=== PATIENT | female | born 1950 | race Caucasian/White ===

== ENCOUNTER → 2016-12-31 | Outpatient (CLI) | payer MEDICARE, BC ==
[~2016-12-31] MED LIST: ACIPHEX20 MG PO; ADVAIR 250-501 EAC1 INH; ALEVE220 M1 PO; ASTELIN; ASTELIN137 MCG INH; AZITHROMYCIN250 MG PO; BENZONATATE200 M1 PO; CALCIUM CITRAT1 EACH PO; CLARITIN10 M2 PO; DELTASONE20 MG; DIPHENOXYLATE PO; DULERA 200 MCG/13 GM INH; HYDROCODONE/APA1 T16 PO; HYZAAR 100-12.51 TAB PO; LEVOCETIRIZINE D5 MG PO; LIBRIUM PO; LOMOTIL WHITE2.5 M1 PO; LOSARTAN-HCTZ1 EAC2 PO; MONTELUKAST SOD10 MG PO; NASONEX17 GM; OMEPRAZOLE40 M1 PO; PHENERGAN PO; PHENERGAN25 MG PO; PREDNISONE10 M1; PREMARIN PO; PROAIR HFA8.5 GM INH; PROTONIX PO; REGLAN PO; SENNA LAXATIVE25 MG; TRAMADOL HCL50 M1 PO; VENTOLIN; VITAMIN C500 M1 PO; XOPENEX1.25 MG/3 INH; ZYRTEC PO; [UNRECOGNIZED DRUG - OTHER] PO
--- NOTE | ~2016-12-31 | MR113 ---
[facility] A Service of [facility] RADIOLOGY TEXT RESULTS PATIENT: KURT CENTENO LOCATION: [facility] : 50 UNIT #: [id number] AGE: [address]: Janelle Choudhary MD SEX: F ORDER DR: [id number] [place] [id number] P MR#: [id number] Acc #: [id number] NAME: KURT CENTENO : 1950 SEX: F STUDY DATE/TIME: 12/31/2016 11:38 UNIT: [facility] ROOM: STUDY DESCRIPTION: MR Lumbar Wo Contrast Attending Physician: Alicia Choudhary M.D. Referring Physician: Alicia Choudhary M.D. Ordering Physician: Alicia Choudhary M.D. Primary Care Physician: Saroj Alexis M.D. MRI CENTER REPORT This report is preliminary unless electronic signature is present. EXAM Lumbar spine MRI no contrast 12/31/2016 TECHNIQUE Routine unenhanced lumbar spine MRI. HISTORY Low back pain and right leg pain and right foot pain for 1 year. FINDINGS There is a grade 2 anterolisthesis at L5-S1 with bilateral pars defects. Alignment is otherwise normal and bone marrow signal is within normal limits. The paraspinous soft tissues are normal. At L1-L2, L2-L3, L3-L4 and L4-L5, there is no canal or foraminal stenosis. At L5-S1, there is anterolisthesis, pars defects, pseudo disc bulge, and no canal stenosis but at least moderate left and [id number]-rb-[id number] right foraminal stenosis. IMPRESSION Grade 2 L5-S1 anterolisthesis with bilateral pars defects and lrng-jtmylxc-rstq-right right foraminal stenosis. Otherwise, negative normal lumbar spine MRI without contrast. Dictated by... Jose L Puri M.D. [facility] A Service of [facility] RADIOLOGY TEXT RESULTS PATIENT: KURT CENTENO LOCATION: [facility] : 50 UNIT #: [id number] AGE: [address]: Janelle Choudhary MD SEX: F ORDER DR: THIS IS AN ELECTRONICALLY VERIFIED REPORT Jose L Puri M.D. at 01/02/2017 5:06 PM TEV/pcl TD: 12/31/2016 17:52 JOB #: [id number] MRI CENTER REPORT Page 1 of 1
== END | disposition home or self-care (01) ==
LOC: SMRI 07:33
DX: M54.16 Radiculopathy, lumbar region (principal); M43.17 Spondylolisthesis, lumbosacral region
CPT/HCPCS: 72148

== ENCOUNTER → 2017-01-03 | Outpatient (CLI) | payer MEDICARE, BC ==
--- NOTE | ~2017-01-03 | CR63 ---
[facility] A Service of [facility] RADIOLOGY TEXT RESULTS PATIENT: KURT CENTENO LOCATION: [facility] : 50 UNIT #: [id number] AGE: [address]: LUCILA GREEN APRN SEX: F ORDER DR: [id number] [facility] [address] [place], [place] [address] [id number] O MR#: [id number] Acc #: [id number] NAME: KURT CENTENO : 1950 SEX: F STUDY DATE/TIME: 01/03/2017 15:00 UNIT: [facility] ROOM: STUDY DESCRIPTION: CR Chest 2 View Attending Physician: Lucila Green Np Referring Physician: Lucila Green Np Ordering Physician: Lucila Green Np Primary Care Physician: Saroj Alexis M.D. MEDICAL IMAGING REPORT This report is preliminary unless electronic signature is present EXAM PA and lateral chest 01/03 COMPARISON 07/23/2016 HISTORY Cough, shortness of breath and congestion for 3 days FINDINGS PA and lateral views are obtained. The cardiovascular configuration of the chest is normal and the lungs are clear. There is atherosclerotic disease in the aorta. CONCLUSION 1. No active disease Dictated by... Esau Hope M.D. THIS IS AN ELECTRONICALLY VERIFIED REPORT Esau Hope M.D. at 01/03/2017 10:17 PM CAESAR/eliot TD: 01/03/2017 16:20 JOB #: [id number] MEDICAL IMAGING REPORT Page 1 of 1 COPY
== END | disposition home or self-care (01) ==
LOC: CRAD 14:42
DX: R05 Cough (principal)
CPT/HCPCS: 71020

== ENCOUNTER → 2017-02-12 | Day surgery (SDC) | payer MEDICARE, BC ==
--- NOTE | ~2017-02-12 | OR ---
Unit #: [id number] #: [id number] Patient: KURT CENTENO [id number] [address] [place], [place] [address] [id number] O MR#: [id number] NAME: KURT CENTENO ROOM: Date of Procedure: 02/12/2017 Admission Date: 02/12/2017 Surgeon: Dominik Willard M.D. : 1950 Attending Physician: Dominik Willard M.D. Primary Care Physician: Saroj Alexis M.D. OPERATIVE REPORT PREOPERATIVE DIAGNOSES Spondylolisthesis and radiculopathy. POSTOPERATIVE DIAGNOSES Spondylolisthesis and radiculopathy. PROCEDURE PERFORMED Lumbar epidural steroid injection with intravenous sedation under fluoroscopic guidance for needle localization. HISTORY The patient is a 66-year-old female who complained of right lower extremity pain down to her lateral foot. Workup demonstrated a grade 2 L5-S1 spondylolisthesis and the symptom complex consistent with S1 radiculopathy. She failed to settle with conservative treatment. Based on history, pathology, and symptomatology, plan is for trial of epidural steroids. Risks and benefits of all which have been reviewed. DESCRIPTION OF PROCEDURE The patient was placed in the seated position. Standard monitors were applied. A sterile prep and drape then of the lumbar area was performed. Then, 2 mg of Versed was given for sedation and anxiolysis, which were adequate. Vital signs did remain stable. The skin then at the L5 level was localized with 1% lidocaine. An 18-gauge Hustead needle was then advanced via loss of resistance technique and fluoroscopic guidance in toward the epidural space. After confirming proper positioning with fluoroscopy and radiographic contrast, 80 mg of Depo-Medrol and 4 mL of 0.125% bupivacaine were deposited. The patient tolerated the procedure otherwise well and was discharged to the recovery room in stable condition. Dictated by... Dominik Willard M.D. LHP/modl TD: 02/12/2017 11:04 JOB #: [id number] CC: Alicia Choudhary M.D. Unit #: [id number] #: [id number] Patient: KURT CENTENO OPERATIVE REPORT Page 1 of 1 X Dominik Willard MD X PROCEDURE OPERATIVE NOTE
== END | disposition home or self-care (01) ==
LOC: CCSC 07:38
DX: M43.17 Spondylolisthesis, lumbosacral region (principal); M54.18 Radiculopathy, sacral and sacrococcygeal region; K21.9 Gastro-esophageal reflux disease without esophagitis
CPT/HCPCS: J1040; J2250

== ENCOUNTER → 2017-02-19 | Day surgery (SDC) | payer MEDICARE, BC ==
--- NOTE | ~2017-02-19 | OR ---
Unit #: [id number] #: [id number] Patient: KURT CENTENO [id number] [address] [place], [place] [address] [id number] O MR#: [id number] NAME: KURT CENTENO ROOM: Date of Procedure: 02/19/2017 Admission Date: 02/19/2017 Surgeon: Dominik Willard M.D. : 1950 Attending Physician: Dominik Willard M.D. Primary Care Physician: Saroj Alexis M.D. PROCEDURE OPERATIVE NOTE PREOPERATIVE DIAGNOSIS Radiculopathy, spondylolisthesis, spinal stenosis. POSTOPERATIVE DIAGNOSIS Radiculopathy, spondylolisthesis, spinal stenosis. PROCEDURE PERFORMED Epidural steroid injection with intravenous sedation and fluoroscopic guidance needle localization. HISTORY The patient is a 66-year-old female who presented with history of right lower extremity pain radiating to her lateral foot. Workup demonstrated a grade 2 spondylolisthesis with significant neural foraminal stenosis. She has failed conservative treatment in the past and we plan a trial of epidural steroids. The risks and benefits were reviewed. The first injection has resulted in at least 50% settling of her symptom complex. The patient had a good initial response for her pathology and symptomatology. We will proceed with the second injection today. PROCEDURE The patient was placed in the seated position. Standard monitors were applied. Versed 2 mg was given for sedation and anxiolysis which were adequate. Vital signs remained stable. A sterile prep and drape then of the lumbar area was performed. The skin at the L5-S1 level was localized with 1% lidocaine. An 18-gauge Faniticstead needle was then advanced via loss of resistance technique and fluoroscopic guidance in toward the epidural space. After confirming proper positioning with fluoroscopy and radiographic contrast, 80 mg of Depo-Medrol and 4 cc of 0.125% bupivacaine were deposited. The patient tolerated the procedure otherwise well and was discharged to the recovery room in stable condition. Dictated by... Vinay Figueroa/domenica TD: 02/19/2017 09:38 JOB #: [id number] CC: Dominik Willard M.D. Unit #: [id number] #: [id number] Patient: KURT CENTENO [place] PROCEDURE OPERATIVE NOTE Page 1 of 1 X Dominik Willard MD X PROCEDURE OPERATIVE NOTE
== END | disposition home or self-care (01) ==
LOC: CCSC 07:25
DX: M43.17 Spondylolisthesis, lumbosacral region (principal); M54.16 Radiculopathy, lumbar region; M48.06 Spinal stenosis, lumbar region; M99.73 Connective tissue and disc stenosis of intervertebral foramina of lumbar region; K21.9 Gastro-esophageal reflux disease without esophagitis; Z88.1 Allergy status to other antibiotic agents; Z88.3 Allergy status to other anti-infective agents; Z88.8 Allergy status to other drugs, medicaments and biological substances; Z79.899 Other long term (current) drug therapy
CPT/HCPCS: J1040; J2250

== ENCOUNTER → 2017-02-26 | Day surgery (SDC) | payer MEDICARE, BC ==
--- NOTE | ~2017-02-26 | OR ---
Unit #: [id number] #: [id number] Patient: KURT CENTENO [id number] [address] [place], [place] [address] [id number] O MR#: [id number] NAME: KURT CENTENO ROOM: Date of Procedure: 02/26/2017 Admission Date: 02/26/2017 Surgeon: Dominik Willard M.D. : 1950 Attending Physician: Dominik Willard M.D. Primary Care Physician: Saroj Alexis M.D. OPERATIVE REPORT JOB NOTE: CC: PAIN CENTER PREOPERATIVE DIAGNOSES Radiculopathy, spondylolisthesis, back pain. POSTOPERATIVE DIAGNOSES Radiculopathy, spondylolisthesis, back pain. PROCEDURE PERFORMED Lumbar epidural steroid injection with intravenous sedation and fluoroscopic guidance for needle localization. INDICATIONS FOR PROCEDURE The patient is a 66-year-old female, who presented with right lower extremity pain radiating to her lateral foot. There is less intense amount of back pain. She is unsure what causes to get significant worse for the pain radiates over lateral foot to the toes. Workup demonstrated grade 2 spondylolisthesis at L5-S1 level, actually with worse neural foraminal narrowing to the left than the right. She has not settled with conservative treatment. The decision was made to give the patient a trial of epidural steroids. Two were done at this point. It helped what mild back pain she was having and the pain that was running down her lower extremity. She still does get intermittent pain across her foot and is less frequent, but still the same nature when it does occur. She is looking to exercise more. Based on a good partial response, she has had with the right side of her back and lower extremity and less frequent foot pain. We are going to proceed with a final injection at this point. It is unclear whether or not this foot pain is due to possibly something in her foot versus her back issue. Based on the fact, everything in the foot part is improved with these 2 injections. DESCRIPTION OF PROCEDURE The patient was placed in a seated position. Standard monitors were applied. Sterile prep and drape of the lumbar area was performed. The skin at the L5-S1 level was localized with 1% lidocaine. An 18-gauge Anctu needle was then advanced via loss of resistance technique and fluoroscopic guidance in toward the epidural space. The patient did not complain of pain or paresthesia during needle advancement. After confirming proper positioning with fluoroscopy and radiographic contrast, a dose of 80 mg of Depo-Medrol and 4 mL of 0.125% bupivacaine were deposited. The patient tolerated the procedure otherwise well and was discharged to the recovery room in stable condition. Unit #: [id number] #: [id number] Patient: KURT CENTENO Dictated by... Vinay Figueroa/genaro TD: 02/26/2017 22:53 JOB #: [id number] CC: Alicia Choudhary M.D. OPERATIVE REPORT Page 1 of 1 X Dominik Willard MD X PROCEDURE OPERATIVE NOTE
== END | disposition home or self-care (01) ==
LOC: CCSC 07:29
DX: M43.17 Spondylolisthesis, lumbosacral region (principal); M54.16 Radiculopathy, lumbar region; M99.73 Connective tissue and disc stenosis of intervertebral foramina of lumbar region; K21.9 Gastro-esophageal reflux disease without esophagitis; Z79.51 Long term (current) use of inhaled steroids; Z79.899 Other long term (current) drug therapy
CPT/HCPCS: J1040; J2250

== ENCOUNTER → 2017-03-01 | Outpatient (CLI) | payer MEDICARE, BC ==
--- NOTE | ~2017-03-01 | CR63 ---
[facility] A Service of [facility] RADIOLOGY TEXT RESULTS PATIENT: KURT CENTENO LOCATION: [facility] : 50 UNIT #: [id number] AGE: [address]: Gustabo Salinas MD SEX: F ORDER DR: [id number] [facility] [address] [place], [place] [address] [id number] O MR#: [id number] Acc #: [id number] NAME: KURT CENTENO : 1950 SEX: F STUDY DATE/TIME: 03/01/2017 10:28 UNIT: [facility] ROOM: STUDY DESCRIPTION: CR Chest 2 View Attending Physician: Gustabo Salinas M.D. Ordering Physician: Gustabo Salinas M.D. MEDICAL IMAGING REPORT This report is preliminary unless electronic signature is present EXAM Chest, 03/01/2017, [facility]. HISTORY 66-year-old woman, short of air, cough, congestion. Former smoker with history of high blood pressure. COMPARISON Chest, 01/03/2017. FINDINGS Two-view chest demonstrates normal stable cardiac size and configuration. Hilar structures and mediastinal contours are preserved. Bilateral lungs are expanded and clear. IMPRESSION Negative and stable chest. No acute finding. Dictated by... Erick Chapman M.D. THIS IS AN ELECTRONICALLY VERIFIED REPORT Erick Chapman M.D. at 03/01/2017 1:00 PM LILIAM/trish TD: 03/01/2017 11:47 JOB #: [id number] MEDICAL IMAGING REPORT Page 1 of 1 COPY
== END | disposition home or self-care (01) ==
LOC: CRAD 10:16
DX: R06.02 Shortness of breath (principal)
CPT/HCPCS: 71020

== ENCOUNTER → 2017-04-05 | Outpatient (CLI) | payer MEDICARE, BC ==
--- NOTE | ~2017-04-05 | CT57 ---
[facility] A Service [facility] RADIOLOGY TEXT RESULTS PATIENT: KURT CENTENO [id number] : 50 UNIT #: [id number] AGE: [address]: Sonia Jackson SEX: F ORDER DR: [id number] [place] [id number] [place], [place] [address] [id number] O MR#: [id number] Acc #: [id number] NAME: KURT CENTENO : 1950 SEX: F STUDY DATE/TIME: 04/05/2017 14:11 UNIT: [facility] ROOM: STUDY DESCRIPTION: CT Chest Wo Cont Attending Physician: Sonia Jackson A.P.R.N. Referring Physician: Sonia Jackson A.P.R.N. Ordering Physician: Sonia Jackson A.P.R.N. Primary Care Physician: Sonia Jackson A.P.R.N. MEDICAL IMAGING REPORT This report is preliminary unless electronic signature is present EXAM CT of the chest without contrast INDICATIONS Persistent cough since July 2016. Follow up pulmonary nodule. TECHNIQUE CT scan of the chest was performed without contrast. Coronal and sagittal reformatted images were obtained. This CT exam was performed with one or more of the following radiation dose reduction techniques: automatic exposure control, adjustment of mA and/or kV according to patient size, and iterative reconstruction. COMPARISON 07/27/2016. FINDINGS Emphysema. Stable minimal tree-in-bud nodularity in the right upper lobe. This is likely infectious or inflammatory small airways disease. Scattered tiny calcified granulomas elsewhere in the lungs. No suspicious pulmonary nodule. No suspicious lymphadenopathy or pleural effusion. Tiny hiatal hernia containing mostly fat. Limited imaging of the upper abdomen demonstrates diffuse fatty infiltration of the liver. The bone windows are unremarkable. IMPRESSION 1. Stable mild emphysematous change. 2. Stable minimal tree-in-bud nodularity in the right upper lobe. No suspicious pulmonary nodule. [facility] A Service [facility] RADIOLOGY TEXT RESULTS PATIENT: KURT CENTENO LOCATION: [facility] #: [id number] : [birth year] UNIT #: [id number] AGE: [address]: Sonai Jackson SEX: F ORDER DR: Dictated by... Christiano Cristobal M.D. THIS IS AN ELECTRONICALLY VERIFIED REPORT Christiano Cristobal M.D. at 04/07/2017 12:09 PM ARS/pcl TD: 04/06/2017 13:19 JOB #: [id number] MEDICAL IMAGING REPORT Page 1 of 1 COPY
== END | disposition home or self-care (01) ==
LOC: CCAT 13:33
DX: J98.4 Other disorders of lung (principal)
CPT/HCPCS: 71250